=== PATIENT | male | born 2000 | race Caucasian/White ===

== ENCOUNTER 2019-02-17 15:18 | Emergency (ER) | payer MEDICAID ==
[~2019-02-17] VITALS: Ht 177.8 cm; Wt 56.7 kg
[2019-02-17 15:31] VITALS: BP 140/85
[2019-02-17 15:45] VITALS: BP 140/85
--- NOTE | 2019-02-17 15:45 | NUR ---
BIB SELF. AAO X4 C/O RIGHT TESTICULAR PAIN, RADIATES TO RIGHT GROIN AND DOWN RIGHT LEG. DENIES RECENT TRAUMA/INJURY. DENIES TESTICULAR SWELLING. PT STATES THAT HE HAD "TESTICULAR STAPLING TO THE LEFT TESTICLE TO PREVENT TESTICULAR TORSION." PT UNABLE TO AMBULATE DUE TO PAIN. ER TO EVALUATE PT.
--- NOTE | 2019-02-17 15:55 | NUR ---
[employer] MANAGER AT BEDSIDE
[2019-02-17] MEDS ORDERED: KETOROLAC 60 MG/2 ML VIAL IM ONE (16:10)
--- NOTE | 2019-02-17 16:13 | NUR ---
DR WALKER AT BEDSIDE FOR PT EVAL
[2019-02-17] MEDS ORDERED: IBUPROFEN 400 MG TAB PO ONE (16:30)
[2019-02-17 17:30] LABS: APPEARANCE,URINE CLEAR (CLEAR); BILIRUBIN,URINE NEGATIVE (NEGATIVE); BLOOD, URINE NEGATIVE (NEGATIVE); COLOR,URINE YELLOW (YELLOW); LEUKOCYTE ESTERASE ,URINE NEGATIVE (NEGATIVE); NITRITE, URINE NEGATIVE (NEGATIVE); UGLUCOSE NEGATIVE (NEGATIVE)
--- NOTE | 2019-02-17 18:20 | NUR ---
PATIENT ELOPED FROM FACILITY. DISCHARGE INSTRUCTIONS NOT GIVEN TO PATIENT. NOTIFIED.
[2019-02-19 06:07] LABS: CHLAMYDIA TRACHOMATIS AMP DNA Negative (Negative)
== END 2019-02-17 18:10 | disposition home or self-care (01) ==
LOC: MED 15:18
DX: N50.811 Right testicular pain (principal); L72.0 Epidermal cyst; Z88.1 Allergy status to other antibiotic agents
CPT/HCPCS: 36415; 76870; 81003; 87491; 99284; Q0092; J1885

== ENCOUNTER 2020-11-24 13:52 | Emergency (ER) | payer MEDICAID, OTHER ==
[~2020-11-24] VITALS: Ht 175.3 cm; Wt 63.0 kg
[2020-11-24 13:57] VITALS: BP 140/90
--- NOTE | 2020-11-24 15:46 | NUR ---
CALLED FOR PATIENT, NO ANSWER.
--- NOTE | 2020-11-24 15:56 | NUR ---
PATIENT NAME CALLED OUT TO LOBBY, NO RESPONSE AT THIS TIME
--- NOTE | 2020-11-24 16:01 | NUR ---
PT NAME CALLED OUT TO LOBBY, NO RESPONSE AT THIS TIME
--- NOTE | 2020-11-24 16:02 | NUR ---
PATIENT LEFT WITHOUT BEING SEEN BY DR. PATTERSON. NO FURTHER CARE PROVIDED FOR PATIENT.
== END 2020-11-24 16:02 | disposition left against medical advice (07) ==
LOC: MED 13:52
DX: N48.30 Priapism, unspecified (principal); Z53.21 Procedure and treatment not carried out due to patient leaving prior to being seen by health care provider